=== PATIENT | female | born 1955 | race Caucasian/White ===

== ENCOUNTER 2018-02-23 23:26 | Emergency (ER) | payer OTHER ==
[~2018-02-23] VITALS: Ht 167.6 cm; Wt 81.6 kg
[2018-02-24] MEDS ORDERED: SODIUM CHLORIDE 0.9% 1,000 ML IV ONE (03:45)
[2018-02-24] MEDS ORDERED: CYCLOBENZAPRINE HCL 10 MG TAB PO ONE (04:15)
[2018-02-24 05:00] VITALS: BP 123/76
== END 2018-02-24 04:13 | disposition home or self-care (01) ==
LOC: EDBD 23:26 → ER 23:39
DX: M47.892 Other spondylosis, cervical region (principal); M62.838 Other muscle spasm; Z88.1 Allergy status to other antibiotic agents
CPT/HCPCS: 72040; 99284; J7030; 72125